=== PATIENT | male | born 1960 | race Caucasian/White ===

== ENCOUNTER 2018-10-27 23:11 | Emergency (ER) | payer OTHER ==
[~2018-10-27] VITALS: Ht 175.3 cm; Wt 104.3 kg
[2018-10-28] MEDS ORDERED: ROPINIROLE HCL2 M1 PO (00:01)
[2018-10-28] MEDS ORDERED: PREDNISONE 20 M20 MG PO (00:03)
[2018-10-28] MEDS ORDERED: TESSALON PERLE100 MG PO (00:03)
[2018-10-28] MEDS ORDERED: PROAIR HFA8.5 GM INH (00:05)
[2018-10-28 00:53] VITALS: BP 103/73
== END 2018-10-28 00:54 | disposition home or self-care (01) ==
LOC: ER 23:11
DX: J06.9 Acute upper respiratory infection, unspecified (principal); J45.909 Unspecified asthma, uncomplicated; F17.210 Nicotine dependence, cigarettes, uncomplicated; Z88.5 Allergy status to narcotic agent; Z88.6 Allergy status to analgesic agent; Z88.8 Allergy status to other drugs, medicaments and biological substances